=== PATIENT | female | born 1980 | race American Indian/Alaskan Native ===

== ENCOUNTER 2017-10-05 09:59 | Emergency (ER) | payer OTHER ==
[2017-10-05 10:08] VITALS: BP 140/78
[2017-10-05] MEDS ORDERED: TORADOL ONE (10:50)
[2017-10-05] MEDS ORDERED: TORADOL IM ONE (10:52)
--- NOTE | 2017-10-05 10:56 | Emergency Department Report ---
ED Back Pain/Injury HPI - General Chief Complaint: Back Pain/Injury Stated Complaint: BACK PAIN Time Seen by Provider: 10/05/17 10:41 Source: patient Limitations: No Limitations - History of Present Illness Initial Comments: Patient is a 37-year-old female who states yesterday she was carrying laundry up stairs and started getting some left lower back tenderness. Patient states feeling. Patient put a heating pad on for several hours and then this morning states the pain was much much worse. Patient was unable to get out of chair when she did finally arrive to work. Patient states pain is now 8 out of 10 worse with movement as a tight sensation. Patient denies any radiation down to the legs denies any bladder or bowel dysfunction. Patient also denies any trauma. - Related Data Home Medications Medication Instructions Recorded Confirmed Last Taken Bismuth Subsalicylate 262 mg PO ONCE 06/17/14 06/17/14 06/17/14 01:30 [Pepto-Bismol] Previous Rx's Medication Instructions Recorded Last Taken Type Ciprofloxacin HCl [Cipro] 500 mg PO Q12H PRN #7 tab 06/17/14 Unknown Rx Ibuprofen [Motrin] 600 mg PO Q8H PRN #20 tablet 10/05/17 Unknown Rx methOCARBAMOL [Robaxin TAB] 500 mg PO Q6H PRN #15 tablet 10/05/17 Unknown Rx traMADol [Ultram] 50 mg PO Q6HR PRN #12 tablet 10/05/17 Unknown Rx Allergies Allergy/AdvReac Type Severity Reaction Status Date / Time Penicillins AdvReac Shortness Verified 10/05/17 10:06 of Breath ED Review of Systems ROS: Stated complaint: BACK PAIN Other details as noted in HPI Comment: All other systems reviewed and negative ED Back Pain Physical Exam - Exam General: Vital signs noted. No distress. Alert and acting appropriately. Back/Abdomen: Yes Perilumbar Tenderness, Yes Straight Leg Raise Pain, No Abdominal Tenderness, No Perithoracic Tenderness, No Sacroiliac Tenderness, No Flank Tenderness Neuro: Yes Normal Sensation, Yes Normal DTR's, Yes Normal Gait, No Motor Weakness ED Course Vital Signs 10/05/17 10:06 Temperature 98.1 F Pulse Rate 76 Respiratory 16 Rate Blood Pressure 140/78 O2 Sat by Pulse 100 Oximetry ED Medical Decision Making - Medical Decision Making She'll be treated for muscle skeletal back pain be discharged home. Critical care attestation.: If time is entered above; I have spent that time in minutes in the direct care of this critically ill patient, excluding procedure time. ED Disposition Clinical Impression: Lumbar strain Qualifiers: Encounter type: initial encounter Qualified Code(s): S39.012A - Strain of muscle, fascia and tendon of lower back, initial encounter Disposition: TO HOME OR SELFCARE Is pt being admited?: No Does the pt Need Aspirin: No Condition: Stable Instructions: Low Back Strain (ED), Core Strengthening Exercises (GEN) Referrals: PRIMARY CARE, [Primary Care Provider] - 3-5 Days Forms: Work/School Release Form(ED) Time of Disposition: 10:55
== END 2017-10-05 11:21 | disposition home or self-care (01) ==
LOC: ED 09:59
DX: S39.012A Strain of muscle, fascia and tendon of lower back, initial encounter (principal); Z88.0 Allergy status to penicillin; X58.XXXA Exposure to other specified factors, initial encounter; Y93.E2 Activity, laundry; Y92.89 Other specified places as the place of occurrence of the external cause; Y99.8 Other external cause status
CPT/HCPCS: 96372; 99282; J1885